=== PATIENT | male | born 1970 | race Caucasian/White ===

== ENCOUNTER 2017-05-17 10:47 | Inpatient (IN) | payer MEDICAID ==
[~2017-05-17] VITALS: Ht 180.3 cm; Wt 83.5 kg
--- NOTE | ~2017-05-17 | HP ---
Unit #: [id number] #: [id number] Patient: MERCEDES BETHEA [id number] [address] [address] [id number] I MR#: [id number] NAME: MERCEDES BETHEA ROOM: 463 Age: 46 Sex: M Admission Date: 05/17/2017 : 1970 Attending Physician: Erasmo Reardon M.D. Primary Care Physician: Primary Care Physician No HISTORY AND PHYSICAL REASON FOR ADMISSION Right acetabulum fracture. HISTORY OF PRESENT ILLNESS Mr. Sahni is a 46-year-old male, who fell off a roof 3 days ago. He landed on the right lower extremity. He admits to pain in the groin and the mid femur. He is unable to weight bear at this time without pain. The patient reports this happened three days ago and he tried to wait it out, but the pain did not subside. There is no numbness or positive weakness and instability due to pain. PAST MEDICAL HISTORY Significant for none. PAST SURGICAL HISTORY None. MEDICATIONS None. ALLERGIES No known drug allergies. SOCIAL HISTORY The patient denies any smoking or alcohol use. REVIEW OF SYSTEMS Ten-organ systems reviewed. The patient denies any blurry vision, congestion, sore throat, shortness of breath, chest pain, abdominal pain, urinary incontinence, numbness, tingling, skin ulcers, lesions, anxiety, depression. Positive for joint pain. PHYSICAL EXAMINATION GENERAL: No acute distress. Alert and oriented x3. VITAL SIGNS: Temperature 98.2, pulse 51, respirations 18, and blood pressure 109/63. HEENT: PERRLA. Nonicteric sclerae. Thorax, trachea midline. No thyromegaly. CARDIAC: S1 and S2. No extra sounds. No murmurs. LUNGS: Clear to auscultation. No rales or rhonchi. ABDOMEN: Nondistended and nontender. Positive bowel sounds. : Deferred. MUSCULOSKELETAL: No erythema or ecchymosis and tenderness to palpation Unit #: [id number] #: [id number] Patient: MERCEDES BETHEA over the right hip. NEUROLOGIC: II through 12 intact. SKIN: Cool and dry. PSYCHIATRIC: Good insight and good judgment. Mood and affect are present. DIAGNOSTIC STUDIES CT scan of the pelvis was ordered and reviewed and showed the comminuted with moderate displaced fracture at the right posterior acetabulum with sparing of the posterior column and pubic ramus. ASSESSMENT Right acetabulum fracture. PLAN I discussed treatment options with the patient. We will have Physical Therapy see the patient and evaluate and treat for ambulation and transfers. The patient will be nonweightbearing. We will discuss the CT scan findings with Dr. Reardon. No surgical intervention is warranted today. The patient can have a regular diet and we will follow him throughout his hospital course. Dictated by Teresa Felder for Josee Krishnan/dorita TD: 05/20/2017 01:54 JOB #: [id number] HISTORY AND PHYSICAL Page 1 of 1 X Amrita Daily HISTORY AND PHYSICAL
--- NOTE | ~2017-05-17 | DS ---
Unit #: [id number] #: [id number] Patient: MERCEDES BETHEA [id number] [address] [address] [id number] I MR#: [id number] NAME: MERCEDES BETHEA ROOM: 458 Age: 46 Sex: M Admission Date: 05/17/2017 : 1970 Discharge Date: 05/24/2017 Attending Physician: Erasmo Reardon M.D. Primary Care Physician: No Primary Care Physician DISCHARGE SUMMARY ADMITTING DIAGNOSIS Right hip fracture. DISCHARGE DIAGNOSIS Right hip fracture. HOSPITAL COURSE On 05/17/2017 Mr. Sahni was admitted with a right acetabulum fracture. He underwent a right acetabulum ORIF on 05/20/2017. He tolerated the procedure well. He was transported to the fourth floor, where he underwent physical therapy, medical management and anticoagulation therapy. He does have foot drop at the right lower extremity and has an AFO brace. DISCHARGE MEDICATIONS 1. Routine home medications. 2. Percocet. 3. Aspirin. FOLLOWUP/DISCHARGE INSTRUCTIONS 1. Mr. Sahni is going to be discharged on aspirin 325 mg p.o. b.i.d. times 4 weeks. 2. Follow-up appointment with Dr. Reardon is in 2 weeks for staple removal. 3. The patient is toe-touch weightbearing Any questions, call our office at [phone]. Dictated by... Amrita Daily P.A.C. for Erasmo Reardon M.D. EDUARDA/gz TD: 05/24/2017 13:25 JOB #: [id number] Unit #: [id number] #: [id number] Patient: MERCEDES BETHEA DISCHARGE SUMMARY Page 1 of 1 X Amrita Daily DISCHARGE SUMMARY
--- NOTE | ~2017-05-17 | CT107 ---
[facility] A Service of [facility] RADIOLOGY TEXT RESULTS PATIENT: MERCEDES BETHEA LOCATION: [facility] [id number] : [birth year] UNIT #: [id number] AGE: [address]: Erasmo Reardon MD SEX: M ORDER DR: [id number] [facility] [address] [place], [place] [address] [id number] I MR#: [id number] Acc #: [id number] NAME: MERCEDES BETHEA : 1970 SEX: M STUDY DATE/TIME: 05/17/2017 11:47 UNIT: [facility] ROOM: [facility] STUDY DESCRIPTION: CT Pelvis Wo Cont Attending Physician: Erasmo Reardon M.D. Ordering Physician: Arley Lane M.D. Primary Care Physician: No Primary Care Physician MEDICAL IMAGING REPORT This report is preliminary unless electronic signature is present EXAM CT pelvis without contrast. HISTORY Fell off roof 3 days ago. Right hip pain. FINDINGS Axial images performed through the hips and pelvis without contrast. Multiplanar reconstructions. This CT exam was performed with one or more of the following radiation dose reduction techniques: automatic exposure control, adjustment of mA and/or kV according to patient size, and iterative reconstruction. Examination demonstrates a moderately comminuted fracture of the right posterior acetabular rim. The posterior column appears intact. Pubic ramus remains intact. Fracture extends from the from the 11 o'clock acetabular margin to about the 6-7 o'clock acetabular axis. There are at least 3 sizeable fragments, the largest measuring right at 3 cm, and these are displaced up to 1.5 cm. The femoral head appears located and no evidence of femoral head or neck fracture. SI joints and left hip appear normal. The lower lumbar spine unremarkable. Pelvic soft tissues demonstrates some loss of the tissue planes about the gluteal and hip musculature compatible with some edema but no sizeable hematoma. There is a small hip effusion. Internal pelvic structures to include the bladder and prostate appear normal. IMPRESSION Moderately comminuted and moderately displaced fracture of the right posterior acetabulum with apparent sparing of the posterior column and pubic ramus. Femoral head remains intact and located. Dictated by... [facility] A Service of [facility] RADIOLOGY TEXT RESULTS PATIENT: MERCEDES BETHEA LOCATION: [facility] 463-01 : [birth year] UNIT #: [id number] AGE: [address]: Erasmo Reardon MD SEX: M ORDER DR: Tamiko Austin M.D. THIS IS AN ELECTRONICALLY VERIFIED REPORT Tamiko Austin M.D. at 05/20/2017 4:50 PM Saeid TD: 05/17/2017 18:32 JOB #: [id number] MEDICAL IMAGING REPORT Page 1 of 1 COPY
--- NOTE | ~2017-05-17 | CR145 ---
[facility] A Service of [facility] RADIOLOGY TEXT RESULTS PATIENT: MERCEDES BETHEA LOCATION: [place] [address] : [birth year] UNIT #: [id number] AGE: [address]: Erasmo Reardon MD SEX: M ORDER DR: [id number] [facility] [address] [facility]. [place], [place] [address] [id number] I MR#: [id number] Acc #: [id number] NAME: MERCEDES BETHEA : 1970 SEX: M STUDY DATE/TIME: 05/20/2017 17:06 UNIT: [facility] ROOM: 3 STUDY DESCRIPTION: CR Hip 1 View Rt Attending Physician: Erasmo Reardon M.D. Ordering Physician: Erasmo Reardon M.D. Primary Care Physician: Primary Care Physician No MEDICAL IMAGING REPORT This report is preliminary unless electronic signature is present EXAM Right hip series 05/20/2017 HISTORY Postop PACU back. ORIF today. Pain. Right hip postop. FINDINGS AP radiograph of the right hip is presented. Comparison to CT examination 05/17/2017. Status post open reduction internal fixation of posterior right acetabular fracture. There has been placement of a malleable plate along the fracture and 4 fixation screws. The fracture planes are not well visualized. No new fractures are suggested. Mild degenerative change in the right hip. Surgical skin christian overlying the operative bed. Small amount of air in the operative bed. Visualized bowel gas pattern normal. Dictated by... Korey Sue M.D. THIS IS AN ELECTRONICALLY VERIFIED REPORT Korey Sue M.D. at 05/21/2017 6:25 PM NATALIA/martha TD: 05/21/2017 06:26 JOB #: [id number] MEDICAL IMAGING REPORT Page 1 of 1 COPY
--- NOTE | ~2017-05-17 | OR ---
Unit #: [id number] #: [id number] Patient: MERCEDES BETHEA [id number] [address] [place], [place] [address] [id number] I MR#: [id number] NAME: MERCEDES BETHEA ROOM: 458 Date of Procedure: 05/20/2017 Admission Date: 05/17/2017 Surgeon: Erasmo Reardon M.D. : 1970 Attending Physician: Erasmo Reardon M.D. Primary Care Physician: Primary Care Physician No OPERATIVE REPORT PREOPERATIVE DIAGNOSIS Posterior column acetabular fracture, right side. PROCEDURE PERFORMED Open reduction and internal fixation with a posterior column plate. ASSISTANTS Amrita Daily and Froilan Durham. ANESTHESIA General. ESTIMATED BLOOD LOSS About 300 to 400 mL. DESCRIPTION OF PROCEDURE The patient was brought to the operating room, given a general anesthetic. He was given preoperative antibiotics and then brought back to the operating room, given general anesthetic and placed in decubitus position with the right side up. The right hip was prepped and draped in a sterile fashion. Modified Aufranc incision was mapped out and made. The subcutaneous dissected away and the fascia split longitudinally, took down the posterior column external rotators and then the capsule came into view. This was T'd open. We were able to identify the two large fracture fragments posteriorly and they were reduced. The sciatic nerve was seen, it was immediately adjacent to the most superior fragment, but it was not in the fracture pattern. We then used a 10- hole [place] Recon plate and bent this to conform to the posterior column down to the ischium. It was then positioned and once it was felt to be fashion appropriately and it abutted the fracture fragments appropriately, this was placed and the 3.5 cortical screws were positioned through the holes in the plate skipping the area of the fractures using it simply as a buttress plate, it was quite solid. The hip was taken through range of motion. There was no impingement with the plate. The wound was irrigated with Betadine and bacitracin. The capsule was repaired with 0 Vicryl, the fascia with a running #1 StrataFix suture and the subcutaneous was closed with 0 and 2-0 Vicryl and christian in the skin. Sterile dressing was applied. Abduction pillow positioned, and the patient was transferred to his bed and general anesthetic reversed. senior assistant manager, Amrita Daily, was present throughout the entire case. Unit #: [id number] #: [id number] Patient: MERCEDES BETHEA Dictated by... Josee Krishnan/dorita TD: 05/22/2017 12:11 JOB #: [id number] OPERATIVE REPORT Page 1 of 1 X Erasmo Reardon MD X PROCEDURE OPERATIVE NOTE
[2017-05-17 13:22] LABS: BASOPHIL# 0.1 X10e3 (0-0.3); BASOPHIL% 0.9 % (0-2.5); EOSINOPHIL# 0.3 X10e3 (0-0.7); EOSINOPHIL% 3.2 % (0.0-7.0); HEMATOCRIT 43.1 % (38.0-50.0); HEMOGLOBIN 14.6 gm/dL (13.0-16.0); LYMPHOCYTE# 2.8 X10e3 (1.0-3.5); LYMPHOCYTE% 35.8 % (17.0-45.0); MEAN CELL VOLUME 97.2 FL (83-96); MEAN CORPUSCULAR HEMOGLOBIN 32.9 PG (28-34); MEAN CORPUSCULAR HGB CONC 33.8 g/dL (30-36); MEAN PLATELET VOLUME 8.7 FL (6.5-11.5); MONOCYTE# 0.6 X10e3 (0-1.0); MONOCYTE% 7.3 % (3.0-12.0); NEUTROPHIL# 4.2 X10e3 (1.5-7.1); NEUTROPHIL% 52.8 % (40-75); PLATELET COUNT 215 X10e3 (140-420); RED BLOOD COUNT 4.44 X10e (3.90-5.60); RED CELL DISTRIBUTION WIDTH 14.1 % (11.0-15.5); WHITE BLOOD COUNT 7.9 X10e3 (4.0-10.5)
[2017-05-17 13:28] LABS: DIFF IND NO
[2017-05-17 13:53] LABS: BUN/CREATININE RATIO 16.25; CALCIUM SERUM 9.3 mg/dL (8.4-10.2); CREATININE SERUM 0.8 mg/dL (0.6-1.4); GLOM FILT RATE Estimated 106.4 mL/min (>60); POTASSIUM 4.4 mmol/L (3.5-5.1)
[2017-05-17 14:13] LABS: INR 0.9; PROTHROMBIN TIME (PATIENT) 10.3 SECONDS (10.0-11.7)
[2017-05-21 02:46] LABS: HEMATOCRIT 38.7 % (38.0-50.0); HEMOGLOBIN 13.2 gm/dL (13.0-16.0); MEAN CELL VOLUME 95.8 FL (83-96); MEAN CORPUSCULAR HEMOGLOBIN 32.7 PG (28-34); MEAN CORPUSCULAR HGB CONC 34.2 g/dL (30-36); RED BLOOD COUNT 4.04 X10e (3.90-5.60); RED CELL DISTRIBUTION WIDTH 13.6 % (11.0-15.5); WHITE BLOOD COUNT 9.9 X10e3 (4.0-10.5)
[2017-05-22 02:35] LABS: HEMATOCRIT 38.8 % (38.0-50.0); MEAN CELL VOLUME 96.3 FL (83-96); MEAN CORPUSCULAR HEMOGLOBIN 32.4 PG (28-34); MEAN CORPUSCULAR HGB CONC 33.6 g/dL (30-36); MEAN PLATELET VOLUME 8.2 FL (6.5-11.5); RED BLOOD COUNT 4.03 X10e (3.90-5.60); RED CELL DISTRIBUTION WIDTH 13.5 % (11.0-15.5)
[2017-05-23 05:11] LABS: HEMATOCRIT 39.7 % (38.0-50.0); HEMOGLOBIN 13.7 gm/dL (13.0-16.0); MEAN CELL VOLUME 96.1 FL (83-96); MEAN CORPUSCULAR HEMOGLOBIN 33.1 PG (28-34); MEAN CORPUSCULAR HGB CONC 34.5 g/dL (30-36); MEAN PLATELET VOLUME 9.1 FL (6.5-11.5); RED BLOOD COUNT 4.13 X10e (3.90-5.60); RED CELL DISTRIBUTION WIDTH 13.3 % (11.0-15.5); WHITE BLOOD COUNT 9.3 X10e3 (4.0-10.5)
[2017-05-24 03:57] LABS: HEMATOCRIT 34.1 % (38.0-50.0); HEMOGLOBIN 11.8 gm/dL (13.0-16.0); MEAN CELL VOLUME 95.5 FL (83-96); MEAN CORPUSCULAR HGB CONC 34.5 g/dL (30-36); MEAN PLATELET VOLUME 8.4 FL (6.5-11.5); RED BLOOD COUNT 3.57 X10e (3.90-5.60); RED CELL DISTRIBUTION WIDTH 13.3 % (11.0-15.5); WHITE BLOOD COUNT 7.8 X10e3 (4.0-10.5)
[2017-05-24] MEDS ORDERED: PERCOCET10 PO (11:03)
[2017-05-24] MEDS ORDERED: ASPIRIN ENTERI325 M1 PO (11:04)
== END 2017-05-24 13:08 | disposition home or self-care (01) | DRG 517 ==
LOC: CED 10:47 → CFTX 10:47 → C4C 13:15 → CEDOF 13:15 → CFTX 13:15 → CEDOF 13:40 → CFTX 13:40 → CEDOF 13:40 → C4C 15:15 → CEDOF 15:15 → C4B 05-21 11:46
PROVIDERS: Nurse Practitioner; Orthopaedic Surgery
PROC: 0QS404Z Reposition Right Acetabulum with Internal Fixation Device, Open Approach (ICD-10-PCS; principal; 2017-05-20 14:00)
DX: S32.441A Displaced fracture of posterior column [ilioischial] of right acetabulum, initial encounter for closed fracture (principal); M21.379 Foot drop, unspecified foot; W13.2XXA Fall from, out of or through roof, initial encounter
CPT/HCPCS: 36415; 72192; 73501; 80048; 85025; 85027; 85610; 85730; 94010; 94760; 97110; 97116; 97162; 97166; 97530; 97535; 99285; C1713; G0378; G8978-GP; G8979-GP; G8987-GO; G8988-GO; J0171; J0690; J0735; J1170; J1650; J1885; J2250; J2405; J2795; J3010